=== PATIENT | female | born 1965 | race Caucasian/White ===

== ENCOUNTER → 2023-03-03 09:07 | Outpatient (CLI) | payer OTHER, SELFPAY ==
--- NOTE | 2023-03-03 | CA_ITS ---
APPROVED REPORT Exam: Exercise Treadmill Technologist: Paige Hale Ht: 5 ft 4 in Wt: 130 lbs BSA: 1.63 m2 HR: 58 bpm BP: 170/86 mmHg Rhythm: NSR Indications: Chest pain Medical History Medications: Metoprolol,,,,, Trazadone,,,,, Stress Test Details Test: Sav HR Resting HR: 54 bpm Max Heart Rate (APMHR): 162 bpm Max HR Achieved: 162 bpm Target HR (85% APMHR): 138 bpm % of APMHR: 100 Recovery HR: 70 bpm HR response to stress: Normal HR response to stress BP Resting BP: 170.0/86.0 mmHg Max BP: 220.0/97.0 mmHg Recovery BP: 154.0/84.0 mmHg BP response to stress: Abnormal hypertensive response to stress. ECG Resting ECG: Normal sinus rhythm Stress ECG: < 0.[address] depression Arrhythmia: None Recovery ECG: Return to baseline within 3 minutes of recovery Recovery Arrhythmia: None Clinical Exercise duration: 12:24 min Highest Stage Achieved: Exercise capacity: 12.8 METs Stress ECG Conclusion The patient was able to exercise for a total of 12 minutes, 24 seconds. She achieved a total of 12.8 METS. She has good exercise capacity compared to age and sex matched peers. She has normal HR, but exaggerated hypertensive BP, response to exercise. Symptoms: Arm fatigue Arrhythmias/Ectopy: None ST-T Changes: < 0.[address] depression Conclusion: Good exercise capacity. Hypertensive exaggerated BP response to exercise. No evidence of ischemia at peak stress on ECG stress test. GXT only (no imaging). If further concern for ischemia, CCTA is recommended to rule out coronary atherosclerosis, if clinically indicated. Test Summary REST . . . . . . . Sitting REST 02:12 0.0 0.0 54 . 170/ 86 . . Stage 1 01:00 10.0 1.7 72 . . . . Stage 1 02:00 10.0 1.7 74 . . . . Stage 1 03:00 10.0 1.7 76 . 148/ 74 . . Stage 2 01:00 12.0 2.5 81 . . . . Stage 2 02:00 12.0 2.5 82 . 152/ 78 . . Stage 2 03:00 12.0 2.5 84 . 152/ 78 . . Stage 3 01:00 14.0 3.4 97 . . . . Stage 3 02:00 14.0 3.4 99 . . . . Stage 3 03:00 14.0 3.4 103 . 176/ 82 . . Stage 4 01:00 16.0 4.2 117 . . . . Stage 4 02:00 16.0 4.2 121 . . . . Stage 4 03:00 16.0 4.2 127 . 184/ 88 . . Stage 5 00:24 18.0 5.0 135 . . . Stop exercise at 12:24 RECOVERY 01:00 0.0 0.0 90 . . . . RECOVERY 02:00 0.0 0.0 81 . 220/ 97 . . RECOVERY 03:00 0.0 0.0 76 . 184/ 90 . . RECOVERY 04:00 0.0 0.0 74 . 173/ 97 . . RECOVERY 05:00 0.0 0.0 68 . 173/ 97 . . RECOVERY 06:00 0.0 0.0 68 . 159/ 88 . . RECOVERY 06:46 0.0 0.0 68 . 154/ 84 . . Electronically signed by : Patricia Edgar MD 03/07/2023 23:16:55
--- NOTE | 2023-03-03 09:08 | CA_ITS ---
APPROVED REPORT EXAM: Comprehensive 2D, Doppler, and color-flow Echocardiogram Counter Pocket Trimmer: Darlien Hargrove RVT Ht: 5 ft 4 in Wt: 130lbs BSA: 1.63 BP: 140/90 mmHg Indications: HTN,FAMILY HX HD 2D Dimensions LVOT 1.94 cm (M/F) 1.5-2.5 LA Volume 44.70 mL LA Volume Index 27.42 mL/m2 (M/F) 16-34 M-Mode Dimensions RVDd 2.24 cm (0.9-2.6) LA Diam 3.55 cm (1.9-4.0) LVDd 4.77 cm (3.5-5.7) Ao Diam 3.12 cm (2.0-3.7) LVDs 3.42 cm (3.5-5.7) IVSd 0.96 cm (0.6-1.1) PWd 0.32 cm (0.6-1.1) EF (Teich) 54.60% FS 28.30% EDV (Teich) 106.00 mL TAPSE 2.36 (<1.7) ESV (Teich) 48.10 mL LV Diastology E Decel Time 157.00 (160-240 msec) E/A Ratio 1.0 MED E' 9.00 (< 7 cm/sec) E'/MED E' Ratio 8.87 (>14) LAT E' 12.90 (<10 cm/sec) E/LAT E' Ratio 6.19 (>14) Aortic Valve AO Peak GR. 7.80 mmHg Mitral Valve MV E Max Thong. 80.00 (40-130 cm/s) MV A Velocity 82.00 (40-130 cm/s) E/A Ratio 0.98 MV Decel. Time 157.00 (160-240 ms) MV PHT 46.00 ms Pulmonary Valve PV Peak Velocity 77.00 (50-150 cm/s) Tricuspid Valve TR P. Velocity 171.00 cm/s RAP Estimate 10.00 mmHg RVSP 21.70 mmHg Left Ventricle The left ventricle is normal size. The left ventricular systolic function is normal. The left ventricular ejection fraction is within the normal range. There is normal left ventricular wall thickness. There is normal LV segmental wall motion. The left ventricular diastolic function is normal. LVEF is 55%. Right Ventricle The right ventricle is normal size. The right ventricular systolic function is normal. Atria The left atrium size is normal. The right atrium size is normal. There is no Doppler evidence of interatrial shunt. Aortic Valve The aortic valve is normal in structure. The aortic valve is trileaflet. There is no aortic valvular stenosis. Trace aortic regurgitation. Mitral Valve The mitral valve is normal in structure. No evidence of mitral valve stenosis. Trace mitral regurgitation. Tricuspid Valve The tricuspid valve leaflets are thin and pliable. Trace tricuspid regurgitation. RVSP is normal. Pulmonic Valve The pulmonary valve is normal in structure. Trace pulmonic regurgitation. Great Vessels The aortic root is normal in size. The ascending aorta is normal in size. IVC is normal in size and collapses >50% with inspiration. Pericardium There is no pericardial effusion. Other Information Study Quality: Fair Conclusion Normal biventricular systolic function. No significant valvular stenosis or regurgitation. Electronically signed by : Patricia Edgar MD 03/06/2023 13:07:23
== END ==
PROVIDERS: PCP Family Medicine; Visit Provider Family Medicine
DX: I10 Essential (primary) hypertension (principal); Z82.49 Family history of ischemic heart disease and other diseases of the circulatory system
CPT/HCPCS: 93017; 93306

== ENCOUNTER → 2023-04-14 08:00 | Outpatient (CLI) | payer OTHER, SELFPAY ==
--- NOTE | 2023-04-14 | CA_ITS ---
FINAL REPORT TECHNIQUE: Spectral and color Doppler exam CLINICAL HISTORY: .HTN COMPARISON: None FINDINGS: DOPPLER RENAL VESSELS HISTORY: Hypertension . FINDINGS: Intrarenal resistive indices on the right are 0.68, normal . Intrarenal resistive indices on the left are 0.68, normal . Renal size is normal and symmetric. Right main renal artery systolic velocity: 200 cm/sec. Aortic-right renal artery flow velocity ratio: 2.16 COMMENT: Stenosis present up to 50% of luminal diameter. Left main renal artery systolic velocity: 192 cm/sec. Aortic-left renal artery flow velocity ratio: 2.07 COMMENT: Stenosis present up to 50% of luminal diameter. IMPRESSION: Moderate bilateral renal artery stenosis, measuring up to 50% luminal diameter stenosis. CTA or gadolinium-enhanced MR may be considered as a more sensitive exam. Alternatively noncontrast MRI may be considered for assessing main renal arteries for stenosis as a more sensitive exam if the patient has renal insufficiency. Reviewed, Interpreted and Dictated by Get Plata MD Transcribed by Hetal Voss Authenticated and . [facility]
== END ==
PROVIDERS: PCP Family Medicine; Visit Provider Family Medicine
DX: I10 Essential (primary) hypertension (principal)
CPT/HCPCS: 93976